=== PATIENT | female | born 1990 | race Caucasian/White ===

== ENCOUNTER 2020-06-26 05:30 | Inpatient (IN) | payer OTHER ==
--- NOTE | 2020-06-26 08:30 | PD.OB.PROG ---
Past Medical History - Primary Care Physician Documenting Provider Type: Attending - Admission Chief Complaint: early labor History of Present Illness: pain History Source: Patient Limitations to Obtaining History: No Limitations - Nursing Documentation Maternal Triage Index: Maternal Triage Index ( Priority 4, Non-urgent MFTI) Nursing Documentation Reviewed: Yes - Past Medical History CLOTH COVERER: Denies/None Cardio/Vascular: Denies/None Pulmonary: Denies/None Gastrointestinal: Denies/None Hepatobiliary: Denies/None Renal/: Denies/None ...: 1 ...Para: 0 ...Term: 0 ...: 0 ...Spon : 0 ...Induced : 0 ...Living Children: 0 ... Weeks Gestation by Dates: 38.1 ...EDC by Dates: 07/09/20 Heme/Onc: Denies/None Infectious Disease: Denies/None Psych: Denies/None Musculoskeletal: Denies/None Rheumatology: Denies/None ENT: Denies/None Endocrine: Denies/None Dermatology: Denies/None - Past Surgical History Past Surgical History: No: None, AAA Repair, AICD, Amputation, Appendectomy, Arthrosocopy, AV Fistula/Graft, Bariatric Surgery, Breast Biopsy, Bypass, CABG, Carotid Endarterectomy, Cataract Removal, Cholecystectomy, Colectomy, Colonoscopy, Colostomy, Craniotomy, , Cystectomy, Hernia Repair, Hysterectomy, Ileal Conduit, Ileosotomy, Joint Replacement, Kidney Transplant, Laminectomy, Liver Transplant, Mastectomy, Nephrectomy, Oopherectomy, Orchiectomy, Permanent Pacemaker, Prostatectomy, Splenectomy, Stent, Thoracotomy, TURP, Tonsillectomy, Tubal Ligation, Upper Endoscopy, Valve Replacement, Vasectomy, Vein Stripping/Ligation - Advance Directives Advance Directives: Yes: Living Will - Smoking History Smoking history: Never smoked Have you smoked in the past 12 months: No - Alcohol/Substance Use Hx Alcohol Use: No History of Substance Use: reports: None - Social History Usual Living Arrangement: With Significant Other Do you think of yourself as: Straight/Heterosexual ADL: Independent History of Recent Travel: No Review of Systems - Review of Systems Constitutional: reports: No Symptoms Eyes: reports: No Symptoms HENT: reports: No Symptoms Neck: reports: No Symptoms Cardiovascular: reports: No Symptoms Respiratory: reports: No Symptoms Gastrointestinal: reports: No Symptoms Genitourinary: reports: No Symptoms Breasts: reports: No Symptoms Reported Musculoskeletal: reports: No Symptoms Integumentary: reports: No Symptoms Neurological: reports: No Symptoms Endocrine: reports: No Symptoms Hematology/Lymphatic: reports: No Symptoms Psychiatric: reports: No Symptoms Physical Exam - Obstetrical Vital Signs: Vital Signs Temperature 98.2 F 06/26/20 06:07 Pulse Rate 102 H 06/26/20 06:07 Respiratory Rate 20 06/26/20 06:07 Blood Pressure 135/84 06/26/20 06:07 O2 Sat by Pulse Oximetry (%) Constitutional: Yes: Well Nourished, No Distress, Calm Eyes: Yes: WNL, Conjunctiva Clear, EOM Intact HENT: Yes: WNL, Atraumatic, Normocephalic Neck: Yes: WNL, Supple, Trachea Midline Cardiovascular: Yes: WNL, Regular Rate and Rhythm Lungs: Clear to auscultation Breast(s): Yes: WNL - Abdominal Exam/OB Number of Fetuses: Single Presentation: Vertex Contractions: Yes Regularity: Irregular Intensity: Unaware Monitor Mode: External Heart Rate (range): 150 Heart Rate Location: [facility] Category: I Accelerations: Uniform Decelerations: None - Vaginal Exam/OB Vaginal Exam Deferred: No Vaginal Bleeding: No Speculum Exam: No Dilatation (cm): 1 to 2 Effacement (%): 70 Amniotic Membrane Status: Intact Presentation: Vertex/Position Station: -1 - Physical Exam Musculoskeletal: Yes: WNL Extremities: Yes: WNL Integumentary: Yes: WNL Deep Tendon Reflex Grade: Normal +2 ...Motor Strength: WNL Psychiatric: Yes: WNL, Alert, Oriented Assessment/Plan will dc pt home to labor, return when more active
[2020-06-26] MEDS ORDERED: AMPICILLIN - 2 GM in SODIUM CHLORIDE 100 ML IVPB ONE (13:00)
[2020-06-26 13:28] LABS: BASO % 0.7 % (0-2.0); HEMATOCRIT 35.9 % (32.4-45.2); HEMOGLOBIN 12.4 GM/dL (10.7-15.3); LYMPH % 13.4 % (8-40); MCH 30.6 pg (25.7-33.7); MCHC 34.6 g/dl (32.0-36.0); MEAN CELL VOLUME 88.4 fl (80-96); MONO % 4.2 % (3.8-10.2); NEUT % 81.7 % (42.8-82.8); PLATELET COUNT 254 K/MM3 (134-434); RBC 4.06 M/mm3 (3.60-5.2); RDW 13.8 % (11.6-15.6); WHITE BLOOD COUNT 10.2 K/mm3 (4.0-10.0)
[2020-06-26 13:29] VITALS: BMI 28.2
[2020-06-26 13:35] LABS: INR 0.91 (0.83-1.09); PROTHROMBIN TIME (PATIENT) 10.7 SEC (9.7-13.0)
[2020-06-26 13:38] LABS: ACTIVATED PTT 26.6 SECONDS (25.2-36.5)
[2020-06-26 13:50] LABS: BLOOD UREA NITROGEN 8.9 mg/dL (7-18); CREATININE 0.7 mg/dL (0.55-1.3); POTASSIUM 3.8 mmol/L (3.5-5.1)
[2020-06-26] MEDS ORDERED: ELECTROLYTE-148 SOLN 500 ML IV SCH (14:00)
[2020-06-26] MEDS: OXYTOCIN 20 UNITS in 0.9% NS 20 UNIT/1,000 ML INFUS.BAG IV SCH ×2 (14:15→18:58)
[2020-06-26] MEDS ORDERED: BENZOCAINE 28 GM HEMORRHOIDAL OINTMENT TP PRN (14:30)
[2020-06-26] MEDS ORDERED: BENZOCAINE 20% 57 GM BOTTLE TP PRN (14:30)
[2020-06-26] MEDS ORDERED: ELECTROLYTE-148 SOLN 1,000 ML IV SCH ×2 (14:30→15:00)
[2020-06-26] MEDS ORDERED: METHYLERGONOVINE MALEATE 0.2 MG/1 ML AMP IM PRN (14:30)
[2020-06-26] MEDS ORDERED: oxyCODONE HCL 5 MG TABLET PO PRN (14:30)
[2020-06-26] MEDS ORDERED: BISACODYL 10 MG SUPP.RECT RC PRN (14:30)
[2020-06-26] MEDS ORDERED: WITCH HAZEL 50% (TUCKS) 40 PAD/JAR PAD TP PRN (14:30)
[2020-06-26] MEDS: IBUPROFEN 600 MG TABLET (FP) PO PRN ×2 (14:35→22:25)
[2020-06-26] MEDS: ACETAMINOPHEN 325 MG TABLET (FP) PO PRN ×2 (14:35→22:23)
--- NOTE | 2020-06-26 14:36 | HP ---
Past Medical History - Admission Chief Complaint: active labor History of Present Illness: active labor History Source: Patient Limitations to Obtaining History: No Limitations - Past Medical History JOB CAPTAIN: No: Alzheimer's, CVA, Dementia, Migraine, Multiple Sclerosis, Peripheral Neuropathy, Parkinson's, Seizure, Syncope, TIA, Vertigo, Other Cardiovascular: No: AFIB, Aneurysm, Aortic Insufficiency, Aortic Stenosis, CAD, CHF, Deep Vein Thrombosis, HTN, Hyperlipdemia, NM, Mitral Insufficiency, Mitral Stenosis, Murmur, Pulmonary Hypertension, Other Pulmonary: No: Asthma, Bronchitis, Cancer, COPD, O2 Dependent, Pneumonia, Previously Intubated, Pulmonary Embolus, Pulmonary Fibrosis, Sleep Apnea, Other Gastrointestinal: No: Ascites, Cancer, Constipation, Crohn's Disease, Diverticulitis, Diverticulosis, Esophageal Varices, Gastritis, GERD, GI Bleed, Hemorrhoids, Hiatal Hernia, Inflamatory Bowel Disease, Irritable Bowel Disease, Pancreatitis, Peptic Ulcer Disease, Ulcerative Colitis, Other Hepatobiliary: No: Cirrhosis, Cholelithiasis, Cholecystitis, Choledocholithiasis, Hepatitis A, Hepatitis B, Hepatitis C, Other Renal/: No: Renal Failure, Renal Inusuff, BPH, Cancer, Hematuria, Hemodialysis, Neurogenic Bladder, Renal Calculi, UTI, Other Reproductive: No: Ectopic , Endometriosis, Fibroids, PID, Polycystic Ovary Syndrome, Postmenopausal, Other ...: 1 ...Para: 0 ...Term: 0 ...: 0 ...Spon : 0 ...Induced : 0 ...Living Children: 0 ...Multiple Gestation: 0 ... Weeks Gestation by Dates: 38.1 ...EDC by Dates: 07/09/20 ...EDC by Sono: 07/09/20 Heme/Onc: No: Anemia, B12 Deficiency, Bleeding Disorder, Cancer, Current Chemotherapy, Current Radiation Therapy, Hemochromatosis, Hypercoaguable State, Myeloproliferative Synd, Sickle Cell Disease, Sickle Cell Trait, Thrombocytopenia, Other Infectious Disease: No: AIDS, C-Diff, Herpes Zoster, HIV, MRSA, STD's, Tuberculosis, VREF, Other Psych: No: Addictions, Anxiety, Bipolar, Depression, Panic, Psychosis, Teresita izophrenia, Other Musculoskeletal: No: Bursitis, Chronic low back pain, Hemiparesis, Hemiplegia, Osteoarthritis, Paraplegia, Other Rheumatology: No: Fibromyalgia, Gout, Lupus, Rheumatoid Arthritis, Sarcoidosis, Vasculitis, Other ENT: No: Allergic Rhinitis, Sinusitis, Other Endocrine: No: Dominic's Disease, [place]'s Disease, Diabetes Insipidus, Diabetes Mellitus, Hyperparathyroidism, Hyperthyroidism, Hypothyroidism, Osteopenia, SIADH, Other Dermatology: No: Basal Cell, Cellulitis, Eczema, Melanoma, Psoriasis, Squamous Cell, Other - Past Surgical History Past Surgical History: No: None, AAA Repair, AICD, Amputation, Appendectomy, Arthrosocopy, AV Fistula/Graft, Bariatric Surgery, Breast Biopsy, Bypass, CABG, Carotid Endarterectomy, Cataract Removal, Cholecystectomy, Colectomy, Colonoscopy, Colostomy, Craniotomy, , Cystectomy, Hernia Repair, Hysterectomy, Ileal Conduit, Ileosotomy, Joint Replacement, Kidney Transplant, Laminectomy, Liver Transplant, Mastectomy, Nephrectomy, Oopherectomy, Orchiectomy, Permanent Pacemaker, Prostatectomy, Splenectomy, Stent, Thoracotomy, TURP, Tonsillectomy, Tubal Ligation, Upper Endoscopy, Valve Replacement, Vasectomy, Vein Stripping/Ligation Hx Myomectomy: No Hx Transabdominal Cerclage: No - Advance Directives Advance Directives: Yes: Living Will - Smoking History Smoking history: Never smoked Have you smoked in the past 12 months: No - Alcohol/Substance Use Hx Alcohol Use: No History of Substance Use: reports: None - Social History Usual Living Arrangement: Yes: With Significant Other Do you think of yourself as: Straight/Heterosexual ADL: Independent History of Recent Travel: No Home Medications - Allergies Allergies/Adverse Reactions: Allergies Allergy/AdvReac Type Severity Reaction Status Date / Time No Known Allergies Allergy Verified 06/26/20 13:33 - Home Medications Home Medications: Ambulatory Orders Vitamins (Sjr) - 1 tab PO DAILY 06/26/20 Family Medical History Family History: Denies Review of Systems - Review of Systems Constitutional: reports: No Symptoms Eyes: reports: No Symptoms HENT: reports: No Symptoms Neck: reports: No Symptoms Cardiovascular: reports: No Symptoms Respiratory: reports: No Symptoms Gastrointestinal: reports: No Symptoms Genitourinary: reports: No Symptoms Breasts: reports: No Symptoms Reported Musculoskeletal: reports: No Symptoms Integumentary: reports: No Symptoms Neurological: reports: No Symptoms Endocrine: reports: No Symptoms Hematology/Lymphatic: reports: No Symptoms Psychiatric: reports: No Symptoms Physical Exam - Maternity Vital Signs: Vital Signs Temperature 98.8 F 06/26/20 13:20 Pulse Rate 100 H 06/26/20 13:20 Respiratory Rate 18 06/26/20 13:20 Blood Pressure 138/91 06/26/20 13:20 O2 Sat by Pulse Oximetry (%) Constitutional: Yes: Well Nourished, No Distress, Calm Eyes: Yes: WNL, Conjunctiva Clear, EOM Intact HENT: Yes: WNL, Atraumatic, Normocephalic Neck: Yes: WNL, Supple, Trachea Midline Cardiovascular: Yes: WNL, Regular Rate and Rhythm Lungs: Clear to auscultation Breast(s): Yes: WNL - Abdominal Exam/OB Number of Fetuses: Single Presentation: Vertex Contractions: Yes Regularity: Regular Intensity: Mod/Strong Monitor Mode: External Heart Rate (range): 150 Heart Rate Location: [facility] Category: I Accelerations: Uniform Decelerations: None - Vaginal Exam/OB Vaginal Bleeding: No Speculum Exam: No Dilatation (cm): 8 Effacement (%): 90 Amniotic Membrane Status: Ruptured Amniotic Fluid: Yes: Clear Presentation: Vertex/Position Station: 0 - Physical Exam Musculoskeletal: Yes: WNL Extremities: Yes: WNL Edema: Yes Integumentary: Yes: WNL Deep Tendon Reflex Grade: Normal +2 ...Motor Strength: WNL Psychiatric: Yes: WNL, Alert, Oriented - Labs Lab Results: CBC, BMP 06/26/20 13:15 06/26/20 13:15 Hemorrhage Risk Assessment - Risk Factors Medium Risk Factors: Yes: None High Risk Factors: Yes: None Risk Score: 1 Risk Level: Medium Risk Assessment/Plan anticipate soon
--- NOTE | 2020-06-26 14:38 | PN ---
Delivery - Delivery Vaginal Delivery: No Problems Type of Anesthesia: Local Episiotomy/Laceration: 1st degree EBL (cc): 250 Delivery, Single - Stages of Labor Placenta: Yes: Spontaneous - Condition of Earth Science Technical Officer/Associate Professor Of Literacy Present: No Infant Gender: Male Position: Left, OA - [place] Feeding Plan Initial Plan: Elected not to breastfeed exclusively throughout hospitalization Remarks - Remarks Remarks: pricip delivery, will push soon
[2020-06-26] MEDS ORDERED: AMPICILLIN - 1 GM in SODIUM CHLORIDE 100 ML IVPB SCH (17:00)
[2020-06-27 08:25] LABS: BASO % 0.4 % (0-2.0); EOS % 0.4 % (0-4.5); HEMATOCRIT 27.5 % (32.4-45.2); HEMOGLOBIN 9.2 GM/dL (10.7-15.3); LYMPH % 19.8 % (8-40); MCH 29.7 pg (25.7-33.7); MCHC 33.5 g/dl (32.0-36.0); MEAN CELL VOLUME 88.8 fl (80-96); MEAN PLT VOLUME 8.5 fl (7.5-11.1); NEUT % 71.4 % (42.8-82.8); PLATELET COUNT 220 K/MM3 (134-434); RBC 3.09 M/mm3 (3.60-5.2); RDW 13.8 % (11.6-15.6); WHITE BLOOD COUNT 12.6 K/mm3 (4.0-10.0)
[2020-06-27] MEDS ORDERED: DIPHTH,PERTUSS(ACELL),TET 0.5 ML DISP.SYRIN IM ONE (10:00)
[2020-06-27] MEDS: PRENATAL VITAMINS W/ FOLIC ACID TABLET (FP) PO SCH (11:09)
[2020-06-27] MEDS: ACETAMINOPHEN 325 MG TABLET (FP) PO PRN (11:17)
[2020-06-27] MEDS: IBUPROFEN 600 MG TABLET (FP) PO PRN (11:17)
--- NOTE | 2020-06-27 20:52 | PN ---
Post Progress Note Post Day: 1 Type of Delivery: Vital Signs: Vital Signs Temperature 98.1 F 06/27/20 09:00 Pulse Rate 98 H 06/27/20 09:00 Respiratory Rate 18 06/27/20 09:00 Blood Pressure 109/80 06/27/20 09:00 O2 Sat by Pulse Oximetry (%) 100 06/27/20 09:00 Breast Exam: Yes: Soft Uterus: Yes: Fundus Firm, Fundus below umbilicus, Non-tender Abdomen/GI: Yes: Abdomen soft, Passing flatus, Tolerating PO Lochia: Yes: Serosa Lochia, amount: Small Extremities: Yes: Calves non-tender Perineum: Yes: Laceration Activity: Ambulating (dc pt home tomorrow ) - Labs Labs: CBC WBC 12.6 K/mm3 (4.0-10.0) H 06/27/20 07:52 RBC 3.09 M/mm3 (3.60-5.2) L 06/27/20 07:52 Hgb 9.2 GM/dL (10.7-15.3) L 06/27/20 07:52 Hct 27.5 % (32.4-45.2) L D 06/27/20 07:52 MCV 88.8 fl (80-96) 06/27/20 07:52 MCH 29.7 pg (25.7-33.7) 06/27/20 07:52 MCHC 33.5 g/dl (32.0-36.0) 06/27/20 07:52 RDW 13.8 % (11.6-15.6) 06/27/20 07:52 Plt Count 220 K/MM3 (134-434) 06/27/20 07:52 MPV 8.5 fl (7.5-11.1) 06/27/20 07:52 Absolute Neuts (auto) 9.0 K/mm3 (1.5-8.0) H 06/27/20 07:52 Neutrophils % 71.4 % (42.8-82.8) 06/27/20 07:52 Lymphocytes % 19.8 % (8-40) D 06/27/20 07:52 Monocytes % 8.0 % (3.8-10.2) D 06/27/20 07:52 Eosinophils % 0.4 % (0-4.5) D 06/27/20 07:52 Basophils % 0.4 % (0-2.0) 06/27/20 07:52 Nucleated RBC % 0 % (0-0) 06/27/20 07:52
--- NOTE | 2020-06-27 20:55 | DS ---
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: Vital Signs Temperature 98.1 F 06/27/20 09:00 Pulse Rate 98 H 06/27/20 09:00 Respiratory Rate 18 06/27/20 09:00 Blood Pressure 109/80 06/27/20 09:00 O2 Sat by Pulse Oximetry (%) 100 06/27/20 09:00 Constitutional: Yes: Well Nourished, No Distress, Calm Eyes: Yes: WNL, Conjunctiva Clear, EOM Intact HENT: Yes: WNL, Atraumatic, Normocephalic Neck: Yes: WNL, Supple, Trachea Midline Cardiovascular: Yes: WNL, Regular Rate and Rhythm Respiratory: Yes: WNL, Regular, CTA Bilaterally Gastrointestinal: Yes: WNL, Normal Bowel Sounds, Soft ...Rectal Exam: Yes: WNL Renal/: Yes: WNL Pelvis: Yes: WNL External Genitalia: Yes: Normal Internal Exam Deferred: Yes Vaginal Exam: Yes: Normal Cervix: Yes: Normal Uterus: Yes: Normal Adnexa: Normal: Bilateral ....Post : Yes: Uterus firm, Uterus non-tender Breast(s): Yes: WNL Musculoskeletal: Yes: WNL Extremities: Yes: WNL Edema: Yes Integumentary: Yes: WNL Wound/Incision: Yes: Clean/Dry, Well Approximated Neurological: Yes: WNL, Alert, Oriented ...Motor Strength: WNL Psychiatric: Yes: WNL, Alert, Oriented Labs: CBC, BMP 06/27/20 07:52 06/26/20 13:15 Delivery - Delivery Vaginal Delivery: No Problems Type of Anesthesia: Local Episiotomy/Laceration: 1st degree EBL (cc): 250 Delivery, Single - Stages of Labor Date 1st Stage Initiatied: 06/25/20 Time 1st Stage Initiated: 12:00 Date 2nd Stage Initiated: 06/26/20 Time 2nd Stage Initiated: 14:00 Date of Delivery: 06/26/20 Time of Delivery: 14:10 Time Placenta Delivered: 14:15 Placenta: Yes: Spontaneous - Condition of Health Information Provider/Pump Installer Present: No Gender: Male Weight: 2.693 kg Position: Left, OA Total Hours ROM (Hrs/Mins): 3 hours 40 minutes - 1 Minute Total Score: 9 5 Minutes Total Score: 9 - Feeding Plan Initial Plan: Elected not to breastfeed exclusively throughout hospitalization Discharge Summary Problems reviewed: Yes Reason For Visit: LABOR ADMIT Procedures: Principal: Other Procedures: none Condition: Stable - Instructions Diet, Activity, Other Instructions: Patient evaluated by MD. D/c home with instructions. Keep f/u apt. Patient verbalized understanding. D/c home stable and undelivered. Referrals: Vern Norris MD [Staff Physician] - Disposition: HOME - Home Medications Comprehensive Discharge Medication List: Ambulatory Orders Vitamins (Sjr) - 1 tab PO DAILY 06/26/20 Prescription Drug Monitoring Program (I-STOP) results: I-STOP reviewed and no issues identified
[2020-06-27] MEDS ORDERED: SENNOSIDES/DOCUSATE COMBO (SENNA PLUS) TABLET (UD) PO PRN (22:00)
[2020-06-28] MEDS: PRENATAL VITAMINS W/ FOLIC ACID TABLET (FP) PO SCH (09:55)
[2020-06-28 10:24] VITALS: BP 109/69; PULSE 90; TEMP 97.9
== END 2020-06-28 11:15 | disposition home or self-care (01) | DRG 560 ==
LOC: JDEL 05:30 → JLDR 12:45 → J3W 17:44
PROVIDERS: ADMIT Obstetrics & Gynecology; ATTEND Obstetrics & Gynecology
PROC: 10E0XZZ Delivery of Products of Conception, External Approach (ICD-10-PCS; principal; 2020-06-26)
DX: O70.0 First degree perineal laceration during delivery (principal); Z3A.38 38 weeks gestation of pregnancy; Z37.0 Single live birth
CPT/HCPCS: 36415; 59409; 80048; 85025; 85610; 85730; 86780; 86850; 86900; 86901; 90715; U0003